=== PATIENT | female | born 1985 | race African-American/Black ===

== ENCOUNTER 2016-09-14 06:41 | Emergency (ER) | payer SELFPAY ==
[~2016-09-14] VITALS: Ht 152.4 cm; Wt 51.0 kg
[2016-09-14 06:51] VITALS: BP 128/79; PULSE 84; RESP 18; TEMP 98.1; O2SAT 97
[2016-09-14] MEDS ORDERED: SODIUM CHLOR 0.9% 1000 ML INJ 1,000 ML IV SCH (07:10)
[2016-09-14 07:11] VITALS: O2SAT 100
[2016-09-14] MEDS ORDERED: SODIUM CHLORIDE 0.9% FLUSH 5 ML FLUSH IVF PRN (07:15)
[2016-09-14] MEDS ORDERED: ONDANSETRON HCL 4 MG/2 ML VIAL IVP ONE (07:15)
[2016-09-14] MEDS ORDERED: PANTOPRAZOLE SODIUM 40 MG VIAL IVP ONE (07:15)
--- NOTE | 2016-09-14 07:15 | PD ---
HPI Chief Complaint: GI Complaint Time Seen by Provider: 07:07 Travel History International Travel<30 days: No Contact w/Intl Traveler<30days: No Traveled to known affect area: No History of Present Illness HPI 31yo F with no PMH presents to the ED with c/o NBNB vomiting and nonbloody diarrhea for 2 days. Does not complain of specific pain in abdomen, just generalized feeling of nausea and unwell. Denies any fever, chest pain, sob, urinary complaints, vaginal discharge or bleeding. No recent travel. PFSH Past Medical History Blood Disorders: No Depression: Yes Cancer: No Cardiovascular Problems: No Diminished Hearing: No Endocrine: No Gastrointestinal Disorders: No Genitourinary: No Immune Disorder: No Implanted Vascular Access Dvce: No Musculoskeletal: No Neurologic: No Reproductive: No Respiratory: No Seizures: Yes ?: Not Menopausal: No : 1 Para: 0 Miscarriage: 0 : 0 Ectopic : Yes (X1) Past Surgical History Other Surgery: No Social History Alcohol Use: Yes (SOCIALLY) Tobacco Use: Yes ("BLACK AND MILDS") Substance Use: Yes (OCC. MARIJUANA) Allergies-Medications (Allergen,Severity, Reaction): Coded Allergies: Onion (Verified Allergy, Severe, THROAT SWELLS, 09/14/16) Reported Meds & Prescriptions Reported Meds & Active Scripts Active No Active Prescriptions or Reported Medications Review of Systems Except as stated in HPI: all other systems reviewed are Neg Physical Exam Narrative GENERAL: 31yo F in mild distress. SKIN: Warm and dry. HEAD: Atraumatic. Normocephalic. EYES: Pupils equal and round. No scleral icterus. No injection or drainage. ENT: No nasal bleeding or discharge. Mucous membranes pink and moist. NECK: Trachea midline. No JVD. CARDIOVASCULAR: Regular rate and rhythm. No murmur appreciated. RESPIRATORY: No accessory muscle use. Clear to auscultation. Breath sounds equal bilaterally. GASTROINTESTINAL: Abdomen soft, non-tender, nondistended. No rebound tenderness or guarding. MUSCULOSKELETAL: No obvious deformities. No clubbing. No cyanosis. No edema. NEUROLOGICAL: Awake and alert. No obvious cranial nerve deficits. Motor grossly within normal limits. Normal speech. PSYCHIATRIC: Appropriate mood and affect; insight and judgment normal. Data Data Last Documented VS Vital Signs Date Time Temp Pulse Resp B/P Pulse Ox O2 Delivery O2 Flow Rate FiO2 09/14/16 07:11 100 09/14/16 07:06 16 09/14/16 06:51 98.1 84 128/79 Room Air Orders Complete Blood Count With Diff (09/14/16 07:10) Comprehensive Metabolic Panel (09/14/16 07:10) Lipase (09/14/16 07:10) Urinalysis - C+S If Indicated (09/14/16 07:10) Iv Access Insert/Monitor (09/14/16 07:10) Ecg Monitoring (09/14/16 07:10) Oximetry (09/14/16 07:10) Ondansetron Inj (Zofran Inj) (09/14/16 07:15) Pantoprazole Inj (Protonix Inj) (09/14/16 07:15) Sodium Chlor 0.9% 1000 Ml Inj (Ns 1000 M (09/14/16 07:10) Sodium Chloride 0.9% Flush (Ns Flush) (09/14/16 07:15) Ed Urine Pregnancytest Poc (09/14/16 07:10) Metoclopramide Inj (Reglan Inj) (09/14/16 08:15) Al-Mag Hy-Si 40-40-4 Mg/Ml Liq (Mag-Al P (09/14/16 09:00) Lidocaine 2% Viscous (Xylocaine 2% Visco (09/14/16 09:00) Labs Laboratory Tests Test 09/14/16 09/14/16 07:03 07:15 White Blood Count 6.9 TH/MM3 Red Blood Count 4.58 MIL/MM3 Hemoglobin 12.4 GM/DL Hematocrit 37.7 % Mean Corpuscular Volume 82.5 FL Mean Corpuscular Hemoglobin 27.1 PG Mean Corpuscular Hemoglobin 32.9 % Concent Red Cell Distribution Width 18.7 % Platelet Count 423 TH/MM3 Mean Platelet Volume 9.6 FL Neutrophils (%) (Auto) 77.2 % Lymphocytes (%) (Auto) 18.2 % Monocytes (%) (Auto) 3.6 % Eosinophils (%) (Auto) 0.6 % Basophils (%) (Auto) 0.4 % Neutrophils # (Auto) 5.4 TH/MM3 Lymphocytes # (Auto) 1.3 TH/MM3 Monocytes # (Auto) 0.2 TH/MM3 Eosinophils # (Auto) 0.0 TH/MM3 Basophils # (Auto) 0.0 TH/MM3 CBC Comment DIFF FINAL Differential Comment Sodium Level 141 MEQ/L Potassium Level 3.8 MEQ/L Chloride Level 107 MEQ/L Carbon Dioxide Level 24.7 MEQ/L Anion Gap 9 MEQ/L Blood Urea Nitrogen 11 MG/DL Creatinine 0.77 MG/DL Estimat Glomerular Filtration 105 ML/MIN Rate Random Glucose 104 MG/DL Calcium Level 9.7 MG/DL Total Bilirubin 1.1 MG/DL Aspartate Amino Transf 29 U/L (AST/SGOT) Alanine Aminotransferase 39 U/L (ALT/SGPT) Alkaline Phosphatase 51 U/L Total Protein 8.9 GM/DL Albumin 4.5 GM/DL Lipase 93 U/L Urine Collection Type CLEAN CATCH Urine Color YELLOW Urine Turbidity CLEAR Urine pH GREATER/EQUAL 9.0 Urine Specific Mobile 1.027 Urine Protein TRACE mg/dL Urine Glucose (UA) NEG mg/dL Urine Ketones 15 mg/dL Urine Occult Blood NEG Urine Nitrite NEG Urine Bilirubin NEG Urine Leukocyte Esterase NEG Urine RBC 0-3 /hpf Urine WBC 0-2 /hpf Urine Squamous Epithelial > 8 /hpf Cells Urine Bacteria FEW /hpf Microscopic Urinalysis Comment CULT NOT INDICATED Urine Collection Time 07:15 [facility] Medical Decision Making Medical Screen Exam Complete: Yes Emergency Medical Condition: Yes Differential Diagnosis Acute gastroenteritis vs. pancreatitis Narrative Course 31yo well appearing female with vomiting and diarrhea for 2 days. Labs reviewed , no leukocytosis. CMP unremarkable. Lipase normal. UA showed ketones at 15. No leukocyte. Urine negative. Pt given zofran, IVF, and pantoprazole. Pt still nauseous after so given reglan. Pt feels better after reglan and GI cocktail. Abdominal exam still benign. Pt tolerating PO. Return precautions given. VS stable. Diagnosis Primary Impression: Gastroenteritis Patient Instructions: General Instructions Departure Forms: Tests/Procedures Additional Instructions: Please follow up with your PMD in 3-7 days. Return to the ED if your symptoms worsen. Med/Other Pt SpecificInfo: Prescription(s) given Scripts Omeprazole 40 Mg Cap40 Mg PO DAILY #7 CAP Ref 0 Prov:Susu Mccormack DO 09/14/16 Ondansetron Odt (Zofran Odt)4 Mg Tab4 Mg SL Q8HR PRN (Nausea/Vomiting) #6 TAB Ref 0 Prov:Susu Mccormack DO 09/14/16 Disposition: 01 DISCHARGE HOME Condition: Stable Susu Mccormack DO Sep 14, 2016 07:15
[2016-09-14 07:39] LABS: AUTOMATED NEUTROPHIL # 5.4 TH/MM3 (1.8-7.7); BASOPHIL % 0.4 % (0.0-2.0); EOSINOPHIL % 0.6 % (0.0-4.0); HEMATOCRIT 37.7 % (35.0-46.0); HEMO FLAGS DIFF FINAL; LYMPH % 18.2 % (9.0-44.0); LYMPHOCYTE # 1.3 TH/MM3 (1.0-4.8); MEAN CELL VOLUME 82.5 FL (80.0-100.0); MEAN CORPUSCULAR HEMOGLOBIN 27.1 PG (27.0-34.0); MEAN CORPUSCULAR HGB CONC 32.9 % (32.0-36.0); MONO % 3.6 % (0.0-8.0); NEUT % 77.2 % (16.0-70.0); PLATELET COUNT 423 TH/MM3 (150-450); RED BLOOD COUNT 4.58 MIL/MM3 (4.00-5.30); RED CELL DISTRIBUTION WIDTH 18.7 % (11.6-17.2); WHITE BLOOD COUNT 6.9 TH/MM3 (4.0-11.0)
[2016-09-14 07:43] LABS: BLOOD, URINE NEG (NEG); GLUCOSE,URINE NEG (NEG); KETONE, URINE 15 mg/dL (NEG); NITRITE,URINE NEG (NEG)
[2016-09-14 07:45] LABS: PH, URINE GREATER/EQUAL 9.0 (5.0-8.5)
[2016-09-14 07:49] LABS: METHOD OF COLLECTION CLEAN CATCH; RBC, URINE 0-3 /hpf (0-3); URINE COLOR YELLOW (YELLW/STRAW); WBC, URINE 0-2 /hpf (0-5)
[2016-09-14 07:50] LABS: BACTERIA, URINE FEW /hpf; COMMENT (UR) CULT NOT INDICATED; CULTURE IF INDICATED CULT NOT INDICATED; SQUAMOUS EPITHELIAL CELL URINE > 8 /hpf (0-5)
[2016-09-14 07:50] LABS: CHLORIDE 107 MEQ/L (98-107); POTASSIUM 3.8 MEQ/L (3.5-5.1); SODIUM (NA) 141 MEQ/L (136-145)
[2016-09-14 07:54] LABS: ANION GAP 9 MEQ/L (5-15); BICARBONATE 24.7 MEQ/L (21.0-32.0); BLOOD UREA NITROGEN 11 MG/DL (7-18)
[2016-09-14 07:57] LABS: ALT (GPT) 39 U/L (10-53); AST (GOT) 29 U/L (15-37); GLOMERULAR FILTRATION RATE 105 ML/MIN (>89)
[2016-09-14 07:59] LABS: TOTAL BILIRUBIN ADULT 1.1 MG/DL (0.2-1.0)
[2016-09-14 08:00] LABS: ALKALINE PHOSPHATASE 51 U/L (45-117)
[2016-09-14] MEDS ORDERED: METOCLOPRAMIDE INJ 10 MG in SODIUM CHLORIDE 0.9% INJ 50 ML IV ONE (08:15)
[2016-09-14] MEDS ORDERED: LIDOCAINE VISCOUS 2% SOLN 15 ML UDC PO ONE (09:00)
[2016-09-14] MEDS ORDERED: ALUMINUM/MAGNESIUM/SIMETH 30 ML CUP PO ONE (09:00)
[2016-09-14] MEDS ORDERED: ZOFR4TAB3 SL (09:37)
[2016-09-14] MEDS ORDERED: OMEP40CA2 PO (09:37)
[2016-09-14 09:46] VITALS: BP 115/73
== END 2016-09-14 10:15 | disposition home or self-care (01) ==
LOC: PHED 06:41
DX: K52.9 Noninfective gastroenteritis and colitis, unspecified (principal); R19.7 Diarrhea, unspecified; F17.210 Nicotine dependence, cigarettes, uncomplicated
CPT/HCPCS: 80053; 81001; 83690; 84703; 85025; 96361; 96365; 96375; 99284; C9113; J2405; J2765; J7030

== ENCOUNTER 2016-09-16 13:40 | Emergency (ER) | payer SELFPAY ==
[~2016-09-16] VITALS: Ht 152.4 cm; Wt 55.0 kg
[~2016-09-16 13:40] MED LIST: OMEP40CA2 PO; ZOFR4TAB3 SL
[2016-09-16 13:47] VITALS: BP 120/80; PULSE 77; RESP 16; TEMP 99.4; O2SAT 100
[2016-09-16 15:00] VITALS: BP 118/76; PULSE 73; RESP 16
[2016-09-16] MEDS ORDERED: SODIUM CHLOR 0.9% 1000 ML INJ 1,000 ML IV SCH ×2 (15:30)
[2016-09-16] MEDS ORDERED: ONDANSETRON HCL 4 MG/2 ML VIAL IV ONE ×2 (15:30→17:00)
[2016-09-16 16:04] LABS: BASOPHIL # 0.2 TH/MM3 (0-0.2); BASOPHIL % 2.3 % (0.0-2.0); EOSINOPHIL # 0.1 TH/MM3 (0-0.4); EOSINOPHIL % 0.6 % (0.0-4.0); HEMATOCRIT 39.2 % (35.0-46.0); HEMO FLAGS DIFF FINAL; LYMPH % 17.8 % (9.0-44.0); LYMPHOCYTE # 1.8 TH/MM3 (1.0-4.8); MEAN CELL VOLUME 83.7 FL (80.0-100.0); MEAN CORPUSCULAR HEMOGLOBIN 27.2 PG (27.0-34.0); MEAN CORPUSCULAR HGB CONC 32.5 % (32.0-36.0); MONO % 8.5 % (0.0-8.0); NEUT % 70.8 % (16.0-70.0); PLATELET COUNT 413 TH/MM3 (150-450); RED BLOOD COUNT 4.68 MIL/MM3 (4.00-5.30); RED CELL DISTRIBUTION WIDTH 18.4 % (11.6-17.2); WHITE BLOOD COUNT 9.9 TH/MM3 (4.0-11.0)
[2016-09-16 16:13] LABS: CHLORIDE 105 MEQ/L (98-107); POTASSIUM 3.4 MEQ/L (3.5-5.1); SODIUM (NA) 139 MEQ/L (136-145)
[2016-09-16 16:27] LABS: ALKALINE PHOSPHATASE 43 U/L (45-117); ALT (GPT) 26 U/L (10-53); ANION GAP 9 MEQ/L (5-15); AST (GOT) 12 U/L (15-37); BICARBONATE 25.2 MEQ/L (21.0-32.0); BLOOD UREA NITROGEN 11 MG/DL (7-18); GLOMERULAR FILTRATION RATE 95 ML/MIN (>89); TOTAL BILIRUBIN ADULT 0.9 MG/DL (0.2-1.0)
[2016-09-16] MEDS ORDERED: ZOFR4TAB3 SL (16:37)
[2016-09-16] MEDS ORDERED: PROM1SUP9 RECTAL (16:37)
--- NOTE | 2016-09-16 16:37 | PD ---
HPI Chief Complaint: GI Complaint Time Seen by Provider: 15:04 Travel History International Travel<30 days: No Contact w/Intl Traveler<30days: No Traveled to known affect area: No History of Present Illness HPI So 31 year-old woman presents emergent from with ongoing vomiting and diarrhea for the past 3 days. Diarrhea is mostly subsided but she still has severe vomiting. States she is not able to keep any food or liquids down. She has some abdominal cramping as well. No fevers or chills. No history of previous significant similar symptoms. No definite sick contacts. Was seen emergency Department 2 days ago. History Past Medical History Medical History: Denies Significant Hx Tetanus Vaccination: < 5 Years Influenza Vaccination: Yes LMP: 09/04/16 Menopausal: No : 1 Para: 0 Dilation and Curettage (D&C): Yes (x1) Social History Alcohol Use: No (denies) Tobacco Use: Yes ("BLACK AND MILDS") Allergies-Medications (Allergen,Severity, Reaction): Coded Allergies: Onion (Verified Allergy, Severe, THROAT SWELLS, 09/16/16) Reported Meds & Prescriptions Reported Meds & Active Scripts Active Omeprazole 40 Mg Cap 40 Mg PO DAILY Zofran Odt (Ondansetron Odt) 4 Mg Tab 4 Mg SL Q8HR PRN Review of Systems Except as stated in HPI: all other systems reviewed are Neg Physical Exam Narrative GENERAL: Well-appearing 31 year-old woman, no acute distress. SKIN: Warm and dry. NECK: Trachea midline. No JVD. CARDIOVASCULAR: Regular rate and rhythm. No murmur appreciated. RESPIRATORY: No accessory muscle use. Clear to auscultation. Breath sounds equal bilaterally. GASTROINTESTINAL: Abdomen soft, non-tender, nondistended. Hepatic and splenic margins not palpable. MUSCULOSKELETAL: No obvious deformities. No edema. Data Data Last Documented VS Vital Signs Date Time Temp Pulse Resp B/P Pulse Ox O2 Delivery O2 Flow Rate FiO2 09/16/16 15:24 16 09/16/16 13:47 99.4 77 120/80 100 Orders Complete Blood Count With Diff (09/16/16 15:16) Comprehensive Metabolic Panel (09/16/16 15:16) Iv Access Insert/Monitor (09/16/16 15:16) Sodium Chlor 0.9% 1000 Ml Inj (Ns 1000 M (09/16/16 15:30) Sodium Chlor 0.9% 1000 Ml Inj (Ns 1000 M (09/16/16 15:30) Ondansetron Inj (Zofran Inj) (09/16/16 15:30) Labs Laboratory Tests Test 09/16/16 15:57 White Blood Count 9.9 TH/MM3 Red Blood Count 4.68 MIL/MM3 Hemoglobin 12.7 GM/DL Hematocrit 39.2 % Mean Corpuscular Volume 83.7 FL Mean Corpuscular Hemoglobin 27.2 PG Mean Corpuscular Hemoglobin 32.5 % Concent Red Cell Distribution Width 18.4 % Platelet Count 413 TH/MM3 Mean Platelet Volume 9.3 FL Neutrophils (%) (Auto) 70.8 % Lymphocytes (%) (Auto) 17.8 % Monocytes (%) (Auto) 8.5 % Eosinophils (%) (Auto) 0.6 % Basophils (%) (Auto) 2.3 % Neutrophils # (Auto) 7.0 TH/MM3 Lymphocytes # (Auto) 1.8 TH/MM3 Monocytes # (Auto) 0.8 TH/MM3 Eosinophils # (Auto) 0.1 TH/MM3 Basophils # (Auto) 0.2 TH/MM3 CBC Comment DIFF FINAL Differential Comment Sodium Level 139 MEQ/L Potassium Level 3.4 MEQ/L Chloride Level 105 MEQ/L Carbon Dioxide Level 25.2 MEQ/L Anion Gap 9 MEQ/L Blood Urea Nitrogen 11 MG/DL Creatinine 0.84 MG/DL Estimat Glomerular Filtration 95 ML/MIN Rate Random Glucose 77 MG/DL Calcium Level 8.7 MG/DL Total Bilirubin 0.9 MG/DL Aspartate Amino Transf 12 U/L (AST/SGOT) Alanine Aminotransferase 26 U/L (ALT/SGPT) Alkaline Phosphatase 43 U/L Total Protein 8.0 GM/DL Albumin 4.0 GM/DL [facility] Medical Decision Making Medical Screen Exam Complete: Yes Emergency Medical Condition: Yes Interpretation(s) LABS: CBC unremarkable CMP unremarkable. Differential Diagnosis Gastroenteritis, colitis, dehydration, infection, other Narrative Course Medical decision making 31 year-old woman with nausea vomiting diarrhea. Looks well. Plain of ongoing vomiting and not tolerating by mouth. States that the Zofran made her more sick. She looks otherwise well. Diarrhea is mostly resolved. Benign abdominal exam. Labs are reassuring. Given IV fluid rehydration. We'll recommend NM Phenergan as needed for vomiting. Diagnosis Primary Impression: Vomiting Qualified Code: R11.2 - Intractable vomiting with nausea, unspecified vomiting type Additional Instructions: Use Phenergan suppositories as needed for vomiting. He can use Zofran tablets in addition to that if needed. Drinking fluids to stay well-hydrated. If you have continued vomiting, use small frequent drinks. Follow-up with your primary doctor in 1-2 days. Med/Other Pt SpecificInfo: Prescription(s) given Scripts Ondansetron Odt (Zofran Odt)4 Mg Tab4 Mg SL Q8HR PRN (Nausea/Vomiting) #15 TAB May substitute non-ODT form. Prov:Daniel Carrero MD 09/16/16 Promethazine Supp 25 Mg Supp25 Mg RECTAL Q6H PRN (NAUSEA OR VOMITING) #12 SUPP Prov:Daniel Carrero MD 09/16/16 Disposition: 01 DISCHARGE HOME Condition: Stable Daniel Carrero MD Sep 16, 2016 16:37
[2016-09-16 18:04] VITALS: BP 126/76
== END 2016-09-16 18:14 | disposition home or self-care (01) ==
LOC: PHED 13:40
DX: R11.2 Nausea with vomiting, unspecified (principal); R10.9 Unspecified abdominal pain; Z72.0 Tobacco use
CPT/HCPCS: 80053; 85025; 96361; 96374; 96376; 99284; J2405; J7030

== ENCOUNTER 2017-06-02 15:00 | Emergency (ER) | payer SELFPAY ==
[~2017-06-02] VITALS: Ht 152.4 cm; Wt 58.1 kg
[~2017-06-02 15:00] MED LIST changes: +PROM1SUP9 RECTAL
[2017-06-02 15:06] VITALS: BP 124/71; PULSE 86; RESP 18; TEMP 97.6; O2SAT 100
--- NOTE | 2017-06-02 15:34 | PD ---
HPI Chief Complaint: Syncope/Near-Syncope Time Seen by Provider: 15:21 Travel History International Travel<30 days: No Contact w/Intl Traveler<30days: No Traveled to known affect area: No History of Present Illness HPI patient is a 31-year-old female presents emergency department for evaluation of syncopal episode. Patient states she's been having syncopal episodes for the past few years proximate to a year. She didn't workup in the emergency department before with CAT scan of her head and was told that there was nothing wrong with her. The patient states she was at work today where she works at [employer] and felt like she was going to pass out. She states usually she has a prodromal. Prior to passing out. She states she was out only for a few seconds according to coworkers and then came to. Her boss wanted her to be evaluated in emergency department prior to returning to work. She denies any chest pain shortness breath palpitations. She states she has a history of anemia and had been on iron pills in the past but has not been on iron pills in some time. Denies any visual difficulties focalized weakness or headaches. She states that her cold walker admitted to catching her on the way home and did not hit her head or neck. She has no complaints of pain on her person. [facility] Past Medical History Blood Disorders: No Depression: Yes Cancer: No Cardiovascular Problems: No Diminished Hearing: No Endocrine: No Gastrointestinal Disorders: No Genitourinary: No Immune Disorder: No Implanted Vascular Access Dvce: No Musculoskeletal: No Neurologic: No Reproductive: No Respiratory: No Seizures: Yes ?: Not LMP: 05/16/2017 Menopausal: No : 1 Para: 0 Miscarriage: 0 : 0 Ectopic : Yes (X1) Dilation and Curettage (D&C): Yes (x1) Past Surgical History Other Surgery: No Social History Alcohol Use: No (denies) Tobacco Use: Yes ("BLACK AND MILDS") Substance Use: Yes (OCC. MARIJUANA) Allergies-Medications (Allergen,Severity, Reaction): Coded Allergies: onion (Unverified Allergy, Severe, THROAT SWELLS, 06/02/17) Reported Meds & Prescriptions Reported Meds & Active Scripts Active No Active Prescriptions or Reported Medications Review of Systems Except as stated in HPI: all other systems reviewed are Neg Physical Exam Narrative GENERAL: Well-developed well-nourished in no obvious distress. Young healthy- appearing female. SKIN: Focused skin assessment warm/dry. HEAD: Atraumatic. Normocephalic. EYES: Pupils equal and round. No scleral icterus. No injection or drainage. ENT: No nasal bleeding or discharge. Mucous membranes pink and moist. NECK: Trachea midline. No JVD. CARDIOVASCULAR: Regular rate and rhythm. No murmur appreciated. 2+ but equal pulses in all 4 extremity's. RESPIRATORY: No accessory muscle use. Clear to auscultation. Breath sounds equal bilaterally. GASTROINTESTINAL: Abdomen soft, non-tender, nondistended. Hepatic and splenic margins not palpable. MUSCULOSKELETAL: No obvious deformities. No clubbing. No cyanosis. No edema. NEUROLOGICAL: Awake and alert. Cranial nerves II through XII are grossly intact and nonfocal, 5 out of 5 strength in all 4 extremity's, ambulance with an even narrow based gait. PSYCHIATRIC: Appropriate mood and affect; insight and judgment normal. Data Data Last Documented VS Vital Signs Date Time Temp Pulse Resp B/P (MAP) Pulse Ox O2 Delivery O2 Flow Rate FiO2 06/02/17 16:22 06/02/17 15:52 76 20 100 06/02/17 15:06 97.6 Orders Orders Electrocardiogram (06/02/17 ) Basic Metabolic Panel (Bmp) (06/02/17 15:32) Complete Blood Count With Diff (06/02/17 15:32) Ecg Monitoring (06/02/17 15:32) Iv Access Insert/Monitor (06/02/17 15:32) Oximetry (06/02/17 15:32) Sodium Chloride 0.9% Flush (Ns Flush) (06/02/17 15:45) Ed Urine Pregnancytest Poc (06/02/17 15:33) Labs Laboratory Tests Test 06/02/17 15:30 White Blood Count 5.8 TH/MM3 Red Blood Count 4.10 MIL/MM3 Hemoglobin 11.1 GM/DL Hematocrit 34.7 % Mean Corpuscular Volume 84.4 FL Mean Corpuscular Hemoglobin 27.0 PG Mean Corpuscular Hemoglobin Concent 32.0 % Red Cell Distribution Width 15.1 % Platelet Count 304 TH/MM3 Mean Platelet Volume 8.8 FL Neutrophils (%) (Auto) 63.7 % Lymphocytes (%) (Auto) 25.7 % Monocytes (%) (Auto) 6.8 % Eosinophils (%) (Auto) 2.9 % Basophils (%) (Auto) 0.9 % Neutrophils # (Auto) 3.6 TH/MM3 Lymphocytes # (Auto) 1.5 TH/MM3 Monocytes # (Auto) 0.4 TH/MM3 Eosinophils # (Auto) 0.2 TH/MM3 Basophils # (Auto) 0.1 TH/MM3 CBC Comment DIFF FINAL Differential Comment Blood Urea Nitrogen 7 MG/DL Creatinine 0.59 MG/DL Random Glucose 83 MG/DL Calcium Level 9.4 MG/DL Sodium Level 136 MEQ/L Potassium Level 3.8 MEQ/L Chloride Level 102 MEQ/L Carbon Dioxide Level 26.7 MEQ/L Anion Gap 7 MEQ/L Estimat Glomerular Filtration Rate 143 ML/MIN [facility] Medical Decision Making Medical Screen Exam Complete: Yes Emergency Medical Condition: Yes Interpretation(s) EKG shows normal sinus rhythm with normal axis normal R-wave progression. Intervals within normal limits. This nonspecific T-wave flattening in 23 and aVF as well as V4 V5 V6, the T waves are upright though. This very nonspecific finding. Overall this is a borderline EKG. Differential Diagnosis Transient arrhythmia, anemia, , lecture led abnormality, clinically significant traumatic brain injury excluded by [place] CT head rules, neck injury excluded by Nexus criteria. Narrative Course patient roomed emerged permit, appears well in no distress, has no complaints currently. Apparently has had these episodes twice a year for some time. Has a prodromal symptom which she cannot really describe. She denies any high risk criteria by symphysis with syncope rules. Her EKG hemoglobin is 6 electrolytes and creatinine are within normal limits. Patient is neurologically nonfocal, no indication for admission to the hospital for further workup, discussed referral to cardiology for consideration of Holter monitoring and neurology for further testing. She is agreeable. Stable for discharge discussed return to ED criteria and if she is having a prodromal symptom she should sit down to avoid falls and injury. Diagnosis Primary Impression: Syncope Qualified Codes: R55 - Syncope and collapse Referrals: Kyle Valencia MD, Mandeep MD Departure Forms: Tests/Procedures, Work Release Enter return to work date: Jun 02, 2017 Scripts No Active Prescriptions or Reported Meds Disposition: DISCHARGE HOME Condition: Stable Ian Sin MD Jun 02, 2017 15:33
[2017-06-02 15:45] LABS: AUTOMATED NEUTROPHIL # 3.6 TH/MM3 (1.8-7.7); BASOPHIL # 0.1 TH/MM3 (0-0.2); BASOPHIL % 0.9 % (0.0-2.0); EOSINOPHIL # 0.2 TH/MM3 (0-0.4); EOSINOPHIL % 2.9 % (0.0-4.0); HEMATOCRIT 34.7 % (35.0-46.0); HEMO FLAGS DIFF FINAL; LYMPH % 25.7 % (9.0-44.0); LYMPHOCYTE # 1.5 TH/MM3 (1.0-4.8); MEAN CELL VOLUME 84.4 FL (80.0-100.0); MONO % 6.8 % (0.0-8.0); NEUT % 63.7 % (16.0-70.0); PLATELET COUNT 304 TH/MM3 (150-450); RED CELL DISTRIBUTION WIDTH 15.1 % (11.6-17.2); WHITE BLOOD COUNT 5.8 TH/MM3 (4.0-11.0)
[2017-06-02] MEDS ORDERED: SODIUM CHLORIDE 0.9% FLUSH 10 ML FLUSH IVF PRN (15:45)
[2017-06-02 15:48] VITALS: O2SAT 100
[2017-06-02 15:52] VITALS: BP 135/62; PULSE 76; RESP 20; O2SAT 100
[2017-06-02 15:52] LABS: POTASSIUM 3.8 MEQ/L (3.5-5.1)
[2017-06-02 15:55] LABS: BICARBONATE 26.7 MEQ/L (21.0-32.0)
--- NOTE | 2017-06-03 12:29 | EKG ---
Date Performed: 06/02/2017 Time Performed: 15:26:53 PTAGE: 31 years EKG: Sinus rhythm POSSIBLE LEFT ATRIAL ENLARGEMENT NONSPECIFIC T-WAVE ABNORMALITY BORDERLINE ECG Compared to PREVIOUS TRACING nonspecific T wave changes have improved PREVIOUS TRACIN11/16/2015 0 3.02 DOCTOR: Jama Mejia Interpretating Date/Time 06/03/2017 12:27:14
== END 2017-06-02 16:31 | disposition home or self-care (01) ==
LOC: PHED 15:00
DX: R55 Syncope and collapse (principal); R94.31 Abnormal electrocardiogram [ECG] [EKG]; Z72.0 Tobacco use; Z86.2 Personal history of diseases of the blood and blood-forming organs and certain disorders involving the immune mechanism; Z86.59 Personal history of other mental and behavioral disorders; Z86.69 Personal history of other diseases of the nervous system and sense organs; X58.XXXA Exposure to other specified factors, initial encounter; Y92.513 Shop (commercial) as the place of occurrence of the external cause; Y99.0 Civilian activity done for income or pay
CPT/HCPCS: 80048; 84703; 85025; 93005; 99284